=== PATIENT | male | born 1970 | race Caucasian/White ===

== ENCOUNTER 2019-10-24 14:08 | Day surgery (SDC) | payer OTHER ==
[2019-10-23 13:56] VITALS: BMI 21.8
[~2019-10-24 14:08] MED LIST: Dexamethasone 20 MG/5 ML VIAL ONE; Glycopyrrolate 0.2 MG/ML 5 ML SYRINGE ONE; Lidocaine 1% PF 5 ML VIAL ONE; Ondansetron PF 4 MG/2 ML Vial ONE; PROPOFOL 200 MG/20 ML VIAL ONE; Rocuronium Bromide 10 MG/ML (10ML VIAL) ONE
[2019-10-24] MEDS ORDERED: Lidocaine 1% w/Epinephrine 1:100K 20 ML VIAL ONE (14:50)
[2019-10-24] MEDS ORDERED: Bacitracin Zinc Ointment 30 gm TUBE ONE (14:50)
[2019-10-24] MEDS ORDERED: Ciprofloxacin 0.2% Otic 1 DROP CON ONE (15:18)
[2019-10-24] MEDS ORDERED: Midazolam HCl 2 mg/2 ml Vial ONE (15:19)
[2019-10-24] MEDS ORDERED: Fentanyl 100 MCG/2 ML VIAL ONE ×3 (15:19→18:12)
[2019-10-24] MEDS ORDERED: Meperidine HCl/PF 25 MG/ML VIAL ONE (17:09)
[2019-10-24] MEDS ORDERED: HYDROcodone/Acetaminophen 5/325 mg Tablet ONE (18:45)
--- NOTE | 2019-10-25 13:28 | OP ---
DATE OF PROCEDURE: 10/24/2019 PREOPERATIVE DIAGNOSES: 1. Acquired nasal deformity. 2. Nasal septal deviation. 3. Bilateral dynamic nasal valve collapse. 4. Chronic rhinosinusitis. 5. Allergic fungal sinusitis. 6. Bilateral nasal polyposis. POSTOPERATIVE DIAGNOSES: 1. Acquired nasal deformity. 2. Nasal septal deviation. 3. Bilateral dynamic nasal valve collapse. 4. Chronic rhinosinusitis. 5. Allergic fungal sinusitis. 6. Bilateral nasal polyposis. PROCEDURE PERFORMED: [employer] image-guided cranial base navigational surgery. ESTIMATED BLOOD LOSS: 20 mL. COMPLICATIONS: None. ANESTHESIA: GETA. DESCRIPTION OF PROCEDURE: The patient was taken to the operating room, placed supine on the table. General endotracheal anesthesia was obtained by the Anesthesia Staff. Tube was secured in the left lower lip. The patient was placed in a beach-chair position. Afrin pledgets were placed in the nasal cavity as the patient was prepped and draped for standard nasal procedure. Following this, the Afrin pledgets were removed. A 0-degree endoscope was advanced through the nasal cavity. 1% lidocaine with 1:100,000 epinephrine was injected into the inferior turbinates, middle turbinates, and lateral nasal wall bilaterally. Following this, the [employer] image-guided system was then set up, calibrated was noted to be accurate within 1 mm. Following this, the 0-degree endoscope was advanced into the nasal cavity. The previous maxillary antrostomies were visualized and noted to have nasal polyps completely obstructing the maxillary ostia. These were removed using straight Blakesley forceps and a curved microdebrider bilaterally. Following this, the image-guided system was then used to navigate through the ethmoidal cells, where there was multiple scar, adhesions, and bone remnants of the ethmoidal cells present. These were removed using the 0-degree microdebrider and straight Blakesley forceps using the image-guided system. Following this, the anterior face of the sphenoid sinus was identified using the [employer] image-guided system and new sphenoidotomies were created using the 0-degree microdebrider. The sphenoidotomies were widened in a medial and inferior direction. On the right side, there was noted to be allergic fungal debris and allergic mucin present. This was removed using a straight suction. Following this, the 40-degree microdebrider blade and a 45-degree endoscope were used to visualize the frontal recess ostia area. There was complete scarring and complete obstruction of the nasofrontal duct and frontal sinus ostia and frontal recess area. Using the image-guided system, the microdebrider was used to create the frontal sinus ostia bilaterally by widening and removing bone and tissue from this area using the 40-degree microdebrider and the up-biting Blakesley forceps. Allergic fungal debris and nasal polyps were removed from the frontal sinuses bilaterally. Following this, nasal cavity was irrigated. NasoPore packing was placed within the middle meatus and PROPEL frontal sinus stents were placed within the frontal sinus ostia as well as the maxillary sinus ostia bilaterally. Following this, the markedly atrophic and collapse lateral nasal wall was reached. A transcartilaginous incision was made using nasal speculum and an 11 blade and a strut was placed overlying the nasal bones and extending to the alar crease. This provided support of the lateral nasal wall bilaterally. Following this, the patient tolerated the procedure well. Job ID: [id number]
== END 2019-10-24 19:00 | disposition home or self-care (01) ==
LOC: SDC 14:08
PROVIDERS: ATTEND Otolaryngology Plastic Surgery within the Head & Neck
PROC: 09BR8ZZ Excision of Left Maxillary Sinus, Via Natural or Artificial Opening Endoscopic (ICD-10-PCS; principal; 2019-10-24)
PROC: 099W8ZZ Drainage of Right Sphenoid Sinus, Via Natural or Artificial Opening Endoscopic (ICD-10-PCS; principal; 2019-10-24)
PROC: 09BX8ZZ Excision of Left Sphenoid Sinus, Via Natural or Artificial Opening Endoscopic (ICD-10-PCS; principal; 2019-10-24)
PROC: 09BQ8ZZ Excision of Right Maxillary Sinus, Via Natural or Artificial Opening Endoscopic (ICD-10-PCS; principal; 2019-10-24)
PROC: 8E09XBZ Computer Assisted Procedure of Head and Neck Region (ICD-10-PCS; principal; 2019-10-24)
PROC: 099X8ZZ Drainage of Left Sphenoid Sinus, Via Natural or Artificial Opening Endoscopic (ICD-10-PCS; principal; 2019-10-24)
PROC: 09BW8ZZ Excision of Right Sphenoid Sinus, Via Natural or Artificial Opening Endoscopic (ICD-10-PCS; principal; 2019-10-24)
PROC: 09BT8ZZ Excision of Left Frontal Sinus, Via Natural or Artificial Opening Endoscopic (ICD-10-PCS; principal; 2019-10-24)
PROC: 09BS8ZZ Excision of Right Frontal Sinus, Via Natural or Artificial Opening Endoscopic (ICD-10-PCS; principal; 2019-10-24)
DX: J32.1 Chronic frontal sinusitis (principal); J34.2 Deviated nasal septum; J34.89 Other specified disorders of nose and nasal sinuses; J34.3 Hypertrophy of nasal turbinates; J30.89 Other allergic rhinitis; H69.83 Other specified disorders of Eustachian tube, bilateral; J33.9 Nasal polyp, unspecified; Z87.891 Personal history of nicotine dependence; Z79.899 Other long term (current) drug therapy; Z88.0 Allergy status to penicillin; Z88.8 Allergy status to other drugs, medicaments and biological substances; Z98.890 Other specified postprocedural states
CPT/HCPCS: J0131; J1100; J2001; J2175; J2250; J2405; J2704; J3010

== ENCOUNTER 2022-03-18 09:53 | Outpatient (CLI) | payer BC | END 2022-03-18 09:54 | disposition home or self-care (01) | LOC: BICRAD 09:53 | PROVIDERS: ATTEND Physician Assistant Medical | DX: T18.9XXA Foreign body of alimentary tract, part unspecified, initial encounter (principal); K21.9 Gastro-esophageal reflux disease without esophagitis; R13.10 Dysphagia, unspecified; R53.81 Other malaise; R53.83 Other fatigue | CPT/HCPCS: 74018 ==

== ENCOUNTER 2022-12-01 09:35 | Outpatient (CLI) | payer BC | END 2022-12-01 09:36 | disposition home or self-care (01) | LOC: SCSRAD 09:35 | PROVIDERS: ATTEND Nurse Practitioner Family | DX: R05.2 Subacute cough (principal) | CPT/HCPCS: 71046 ==